=== PATIENT | male | born 1975 | race African-American/Black ===

== ENCOUNTER → 2019-07-25 | Day surgery (SDC) | payer OTHER ==
[~2019-07-25] MED LIST: FENTANYL CITRATE/PF 100MCG/2 ML INJ ONE; GLUCAGON FOR INJ 1 MG VIAL ONE; HYOSCYAMINE 0.125 MG TAB ONE; MIDAZOLAM HCL 2 MG/2 ML VIAL ONE; PROPOFOL IV EMULSION 10 MG/ML 50 ML VIAL ONE; [UNRECOGNIZED DRUG - OTHER] TOP
[2019-07-25 13:50] VITALS: BP 124/93
--- NOTE | 2019-07-25 19:37 | Operative Report ---
DATE OF PROCEDURE: 07/25/2019 SURGEON: Rajendra Fiore MD PROCEDURE: Colonoscopy and polypectomy. INDICATIONS FOR COLONOSCOPY: Rectal bleeding. MEDICATIONS: The patient was done under MAC, please see anesthesiologist's note. PROCEDURE IN DETAIL: With the patient in left lateral decubitus position, a flexible fiberoptic Olympus colonoscope was inserted into the rectum with ease and advanced all the way to the cecum. An approximately 1 cm sessile polyp was noted in the cecum that was removed per snare electrocautery and site was hemoclipped. Ascending colon appeared to be within normal limits. One polyp was snared from the transverse colon. One polyp was hot biopsied from the descending colon. Two polyps were hot biopsied from the sigmoid and three were hot biopsied from the rectum. The scope was then retroflexed into the distal rectum and small internal hemorrhoids were noted, none of which was actively bleeding. The scope was then straightened out, it was subsequently withdrawn, and the patient tolerated the procedure well. IMPRESSION: 1. Cecal polyp snared, site hemoclipped. 2. Transverse colon polyp snared. 3. Descending colon polyp x1, hot biopsied. 4. Sigmoid colon polyps x2, hot biopsied. 5. Rectal polyps x3, hot biopsied. 6. Internal hemorrhoids, none actively bleeding. PLAN: Follow up histology. Initiate high-fiber, low-fat diet. Initiate high-fiber supplement. Anucort-HC suppository b.i.d. x10 days and p.r.n. The patient might benefit from a followup colonoscopy in 3 years. A total of 8 polyps were removed. Rajendra Fiore MD [facility] [place]/[facility] /[id number] cc: Dr. Andrea Hill
== END | disposition home or self-care (01) ==
LOC: OR 10:37
PROVIDERS: ATTEND Internal Medicine Gastroenterology
DX: K62.5 Hemorrhage of anus and rectum (principal); D12.0 Benign neoplasm of cecum; D12.3 Benign neoplasm of transverse colon; K62.1 Rectal polyp; K59.09 Other constipation; K64.4 Residual hemorrhoidal skin tags; K64.8 Other hemorrhoids; K21.9 Gastro-esophageal reflux disease without esophagitis; R03.0 Elevated blood-pressure reading, without diagnosis of hypertension; F17.210 Nicotine dependence, cigarettes, uncomplicated; Z68.29 Body mass index [BMI] 29.0-29.9, adult
CPT/HCPCS: 45384; 45385; 93005; J1610; J2250; J2704; J3010; 45378